=== PATIENT | female | born 1990 | race Caucasian/White ===

== ENCOUNTER 2018-06-09 16:58 | Emergency (ER) | payer SELFPAY ==
[~2018-06-09] VITALS: Ht 149.9 cm; Wt 67.2 kg
[2018-06-09 17:03] VITALS: Ht 149.9 cm; Wt 67.2 kg
[2018-06-09] MEDS ORDERED: FAMOTIDINE 20 MG TAB PO STA (19:33)
[2018-06-09] MEDS ORDERED: DIPHENHYDRAMINE 25 MG CAP PO STA (19:33)
[2018-06-09] MEDS ORDERED: predniSONE 20 MG TAB PO STA (19:33)
[2018-06-09] MEDS ORDERED: PRED20TA PO (21:27)
[2018-06-09] MEDS ORDERED: BEN25 PO (21:27)
--- NOTE | 2018-06-09 21:35 | ERD ---
ER Documentation Chief Complaint Chief Complaint GENERALIZED RASH X 4 DAYS HPI This is a 28-year-old female with no known history of allergies presents to the ED with an urticarial rash times 4 days. Patient states she took amoxicillin 4 days ago for strep throat and developed a rash shortly afterwards. She denies any new exposures or foods. She has been taking Benadryl with intermittent relief of her symptoms. She reports associated itchy throat. Denies any facial swelling, tongue swelling, difficulty breathing, difficulty swallowing, shortness of breath or any other symptoms. She last took Benadryl at 10 AM this morning. Mother and patient are concerned and requesting "blood work." ROS All systems reviewed and are negative except as per history of present illness. Medications Home Meds Active Scripts Diphenhydramine Hcl* (Benadryl*) 25 Mg Cap, 25 MG PO Q6 PRN for ITCHING/RASH, #30 TAB Prov:ZAHRAIGRIKIMASON DESOUZA PA-C 06/09/18 Prednisone* (Prednisone*) 20 Mg Tab, 40 MG PO DAILY for 5 Days, #10 TAB Prov:MASON CASEY PA-C 06/09/18 Allergies Allergies: Coded Allergies: No Known Allergy (Unverified , 06/09/18) PMhx/Soc Hx Alcohol Use: No Hx Substance Use: No Hx Tobacco Use: No Smoking Status: Never smoker Physical Exam Vitals Vital Signs Date Temp Pulse Resp B/P (MAP) Pulse Ox O2 O2 Flow FiO2 Time Delivery Rate 06/09/18 98.6 89 16 132/87 99 17:03 (102) Physical Exam Const: No acute distress Head: Atraumatic Eyes: Normal Conjunctiva ENT: Normal External Ears, Nose and Mouth. Neck: Full range of motion. No meningismus. Resp: Clear to auscultation bilaterally Cardio: Regular rate and rhythm, no murmurs Skin: + Diffuse urticarial type rash to her left ankle, left wrist. No secondary lesions appreciated. Back: No midline or flank tenderness Ext: No cyanosis, or edema Neur: Awake and alert Psych: Normal Mood and Affect Result Diagram: 06/09/18193706/09/181937 Results 24 hrs Laboratory Tests Test 06/09/18 19:38 White Blood Count 10.0 10^3/ul Red Blood Count 4.29 10^6/ul Hemoglobin 12.1 g/dl Hematocrit 38.3 % Mean Corpuscular Volume 89.3 fl Mean Corpuscular Hemoglobin 28.2 pg Mean Corpuscular Hemoglobin Concent 31.6 g/dl Red Cell Distribution Width 14.3 % Platelet Count 362 10^3/UL Mean Platelet Volume 9.3 fl Immature Granulocytes % 0.600 % Neutrophils % 63.5 % Lymphocytes % 24.3 % Monocytes % 7.4 % Eosinophils % 3.8 % Basophils % 0.4 % Nucleated Red Blood Cells % 0.0 /100WBC Immature Granulocytes # 0.060 10^3/ul Neutrophils # 6.3 10^3/ul Lymphocytes # 2.4 10^3/ul Monocytes # 0.7 10^3/ul Eosinophils # 0.4 10^3/ul Basophils # 0.0 10^3/ul Nucleated Red Blood Cells # 0.0 10^3/ul Erythrocyte Sedimentation Rate 25 mm/Hr Sodium Level 141 mmol/L Potassium Level 4.4 mmol/L Chloride Level 105 mmol/L Carbon Dioxide Level 29 mmol/L Anion Gap 7 Blood Urea Nitrogen 11 mg/dl Creatinine 0.60 mg/dl Est Glomerular Filtrat Rate mL/min > 60 mL/min Glucose Level 91 mg/dl Calcium Level 9.2 mg/dl Total Bilirubin 0.1 mg/dl Direct Bilirubin 0.00 mg/dl Indirect Bilirubin 0.1 mg/dl Aspartate Amino Transf (AST/SGOT) 21 IU/L Alanine Aminotransferase (ALT/SGPT) 12 IU/L Alkaline Phosphatase 61 IU/L Total Protein 7.7 g/dl Albumin 4.1 g/dl Globulin 3.60 g/dl Albumin/Globulin Ratio 1.13 Current Medications Medications Dose Sig/Valerie Start Time Status Last (Trade) Ordered Route PRN Stop Time Admin Dose Reason Admin 25 mg ONCE STAT 06/09/18 DC 06/09/18 Diphenhydrami PO 19:33 19:43 ne HCl 06/09/18 19:35 (Benadryl) Famotidine 20 mg ONCE STAT 06/09/18 DC 06/09/18 (Pepcid) PO 19:33 19:43 06/09/18 19:35 Prednisone 60 mg ONCE STAT 06/09/18 DC 06/09/18 (Prednisone) PO 19:33 19:43 06/09/18 19:35 Procedures/MDM LABS & DIAGNOSTIC IMAGING: CBC: no e/o of systemic infection or severe anemia CMP: no e/o severe acidosis, alkalosis, renal failure, diabetic ketoacidosis, liver disease ESR: 25 ED COURSE: The patient was given Benadryl, Pepcid, prednisone The medication was well tolerated and the patient had market improvement in symptoms. The patient remained stable throughout ED course. MEDICAL DECISION MAKING: This is a 28-year-old female with no known history of allergies who presents with an itchy rash. Physical exam is consistent with an urticarial type rash, likely allergic in origin. May be associated with a recent amoxicillin use. Blood work was obtained per patient request, and unremarkable. ESR mildly elevated but this is nonspecific and not concerning. She has no evidence of acute respiratory distress, anaphylactic shock, angioedema, or sepsis. I have low suspicion for respiratory decompensation. Her symptoms stabilized. Status post Benadryl, prednisone and Pepcid. She was given Rx of same. She was given a referral to [facility] for further management of her pain. Patient needs and [facility] claim specialist for further evaluation. Strict return precautions discussed. PRESCRIPTIONS: Prednisone, Benadryl SPECIALIST FOLLOW UP RECOMMENDED: health informatics specialist Blood Pressure Assessment: Patient's blood pressure was elevated (>120/80) but appears stable without evidence of hypertension emergency or urgency. The patient was counseled about the risks of hypertension and urged to pursue outpatient monitoring and therapy within a week with their primary care physician. Departure Diagnosis: Primary Impression: Rash Condition: Stable Patient Instructions: Allergic Reaction, Other (General) Referrals: [facility] YOU HAVE RECEIVED A MEDICAL SCREENING EXAM AND THE RESULTS INDICATE THAT YOU DO NOT HAVE A CONDITION THAT REQUIRES URGENT TREATMENT IN THE EMERGENCY DEPARTMENT. FURTHER EVALUATION AND TREATMENT OF YOUR CONDITION CAN WAIT UNTIL YOU ARE SEEN IN YOUR DOCTORS OFFICE WITHIN THE NEXT 1-2 DAYS. IT IS YOUR RESPONSIBILITY TO MAKE AN APPOINTMENT FOR [facility] CARE. IF YOU HAVE A PRIMARY DOCTOR --you should call your primary doctor and schedule an appointment IF YOU DO NOT HAVE A PRIMARY DOCTOR YOU CAN CALL OUR PHYSICIAN REFERRAL HOTLINE AT IF YOU CAN NOT AFFORD TO SEE A PHYSICIAN YOU CAN CHOSE FROM THE FOLLOWING [facility] [address] [facility]. [facility] [address] [facility] [facility] [address] [facility]. [facility] [address] [facility]. [facility] [address] [facility]. [facility]. [address] [facility]. [facility] YOU HAVE RECEIVED A MEDICAL SCREENING EXAM AND THE RESULTS INDICATE THAT YOU DO NOT HAVE A CONDITION THAT REQUIRES URGENT TREATMENT IN THE EMERGENCY DEPARTMENT. FURTHER EVALUATION AND TREATMENT OF YOUR CONDITION CAN WAIT UNTIL YOU ARE SEEN IN YOUR DOCTORS OFFICE WITHIN THE NEXT 1-2 DAYS. IT IS YOUR RESPONSIBILITY TO MAKE AN APPOINTMENT FOR [facility]OLOW-UP CARE. IF YOU HAVE A PRIMARY DOCTOR --you should call your primary doctor and schedule and appointment IF YOU DO NOT HAVE A PRIMARY DOCTOR YOU CAN CALL OUR PHYSICIAN REFERRAL HOTLINE AT . IF YOU CAN NOT AFFORD TO SEE A PHYSICIAN YOU CAN CHOSE FROM THE FOLLOWING [facility] INSTITUTIONS: [facility] [address] [place] [address] [facility] [address] [place], [place] [id number] [place] [address] [address] [place] [address] Additional Instructions: Call your primary care doctor TOMORROW for an appointment during the next 2-4 days and bring all the information and medications prescribed. If the symptoms get worse and your provider is unavailable, return to the Emergency Department immediately. MASON CASEY PA-C Jun 09, 2018 21:35
[2018-06-09 21:47] VITALS: BP 127/73; PULSE 58; RESP 16
== END 2018-06-09 21:47 | disposition home or self-care (01) ==
LOC: FTE 16:58
DX: L50.9 Urticaria, unspecified (principal)
CPT/HCPCS: 36415; 80053; 85025; 85651; 86038; 99283; J7512